=== PATIENT | male | born 1935 | race Hispanic/Latino ===

== ENCOUNTER 2022-10-09 14:33 | Emergency (ER) | payer MEDICARE, SELFPAY ==
[2022-10-09 14:34] VITALS: BP 144/81; PULSE 89; RESP 18; TEMP 36.6; O2SAT 97; BMI 20.5
--- NOTE | 2022-10-09 14:51 | EX.ED.DYSGE1 ---
HPI <MAUDE Colon - Last Filed: 10/09/22 17:15> History of Present Illness Chief Complaint: Dizziness Narrative Narrative: 86-year-old male presents with vertigo. His granddaughter interprets at bedside as he is non-Citizen Of [place] speaking. He returned from [place] about 2 weeks ago and had a cold which resolved. Then 4 days ago he started having vertigo symptoms where if he sits up in bed or turns his head quickly the room spins for several seconds. It resolves with rest. He has nausea but no vomiting. No visual changes or focal motor or sensory changes. No chest pain or shortness of breath. He has had 5 similar episodes in the past and was seen in [place] and prescribed a medication for dizziness and nausea which helped but he no longer has these. He takes no medications. He does not have a primary care doctor. PFSH <MAUDE Colon - Last Filed: 10/09/22 17:15> [facility] Home Medications ciprofloxacin HCl 250 mg tablet 250 mg PO BID ##10 03/19/14 [Rx Last Taken Unknown] phenazopyridine 200 mg tablet 200 mg PO TID #9 tabs 03/19/14 [Rx Last Taken Unknown] meclizine 25 mg tablet 25 mg PO 4X/DAY PRN Dizziness #20 tabs 10/09/22 [Rx Last Taken Unknown] ondansetron 4 mg disintegrating tablet 4 mg PO Q8H PRN PRN Nausea #10 tabs 10/09/22 [Rx Last Taken Unknown] Allergy/AdvReac Type Severity Reaction Status Date / Time No Known Allergies Allergy Verified 10/09/22 14:33 Social History Smoking Status: Never smoker ROS <MAUDE Colon - Last Filed: 10/09/22 17:15> ROS ED ROS Narrative Constitutional: Negative for fever, chills, malaise. Eyes: Negative for visual change. ENT: Negative for sore throat, ear pain, rhinorrhea. CVS: Negative for palpitations, chest pain, syncope. Respiratory: Negative for shortness of breath, cough. GI: Positive for nausea. Negative for abdominal pain, vomiting, diarrhea. : Negative for dysuria. Neuro: Negative for headache, motor/sensory dysfunction. Skin: Negative for rash, abscess, or wound. Musc: Negative for joint pain, swelling, trauma. EXAM <MAUDE Colon - Last Filed: 10/09/22 17:15> Physical Exam Narrative Exam Narrative: CONST: Patient sitting in no acute distress. EYES: Normal inspection. Small left medial pterygium, PERRLA, EOMI, no nystagmus noted. ENT: Normal inspection, moist mucous membranes, nares clear, normal TMs bilaterally. NECK: Normal inspection. RESP: No respiratory distress, CTAB. CVS: Regular rate and rhythm, no murmur, no gallop. SKIN: Color normal, no rash, warm, dry, intact. EXTREMITIES: Normal appearance, full ROM, 2+ radial and PT pulses. NEURO: Oriented x4, 5/5 upper and lower extremity strength, normal [id number] bilaterally. Normal gait. PSYCH: Normal affect. Const Vital Signs: 10/09/22 14:34 10/09/22 14:55 10/09/22 16:02 Temperature 97.9 F Temperature Source Temporal Pulse Rate 89 71 Respiratory Rate 18 16 Respiratory Pattern Normal Blood Pressure 144/81 H 125/62 H Blood Pressure Mean 102 83 Pulse Ox 97 97 Oxygen Delivery Method Room Air Room Air 10/09/22 17:18 Temperature Temperature Source Pulse Rate 79 Respiratory Rate 16 Respiratory Pattern Blood Pressure 141/86 H Blood Pressure Mean Pulse Ox 96 Oxygen Delivery Method <Dr. Estefany Rodriguez MD - Last Filed: 10/09/22 21:01> Physical Exam Const Vital Signs: 10/09/22 14:34 10/09/22 14:55 10/09/22 16:02 Temperature 97.9 F Temperature Source Temporal Pulse Rate 89 71 Respiratory Rate 18 16 Respiratory Pattern Normal Blood Pressure 144/81 H 125/62 H Blood Pressure Mean 102 83 Pulse Ox 97 97 Oxygen Delivery Method Room Air Room Air 10/09/22 17:18 Temperature Temperature Source Pulse Rate 79 Respiratory Rate 16 Respiratory Pattern Blood Pressure 141/86 H Blood Pressure Mean Pulse Ox 96 Oxygen Delivery Method MDM <MAUDE Colon - Last Filed: 10/09/22 17:15> [facility] Narrative Medical decision making narrative: History gathered from: Patient, granddaughter who interprets Patient presents for episodes of dizziness described as room spinning lasting seconds to minutes with head movements or positional changes. He has had similar symptoms in the past. He appears well and nontoxic with normal vital signs. His vision is intact, pupils reactive, no signs of nystagmus. Normal HEENT exam. Heart regular lungs clear he is neurologically intact. No signs of ataxia on exam and he has normal gait. Labs were ordered and he was treated with IV fluids, meclizine and Zofran. EKG is sinus rhythm with no ectopy or ischemic changes. CBC shows normal white count of 6.7, hemoconcentration at 16.7. He has normal electrolytes and creatinine 1.16. There are no prior labs for comparison but he may be slightly dehydrated. He feels much better after treatment and is even moving his head quickly side to side to show me that his symptoms have resolved. I provided a primary care referral and prescriptions for Zofran and meclizine at home to take as needed. He was counseled to return if symptoms worsen and was discharged in stable condition. Differential: BPPV, central vertigo Test considered but not ordered: His symptoms of brief room spinning with head movements seem consistent with peripheral vertigo. With a normal neurological exam and history of similar symptoms I do not think an emergent CT scan of the brain is indicated. Lab Data Attestation: I reviewed the patient's lab results. Labs: Laboratory Results - last 24 hr 10/09/22 10/09/22 14:55 14:55 WBC 6.7 RBC 5.36 Hgb 16.7 H Hct 50.0 H MCV 93.3 MCH 31.2 MCHC 33.4 RDW Std Deviation 45.3 H RDW Coeff of Richy 13.2 Plt Count 227 MPV 8.8 Immature Gran % (Auto) 2.500 H Neut % (Auto) 67.3 Lymph % (Auto) 21.5 Hoke % (Auto) 6.2 Eos % (Auto) 1.9 Baso % (Auto) 0.6 Absolute Neuts (auto) 4.5 Absolute Lymphs (auto) 1.45 Nucleated RBC % 0 Sodium 137 Potassium 4.2 Chloride 102 Carbon Dioxide 28.0 Anion Gap 7 BUN 25 H Creatinine 1.16 H Estim Creat Clear Calc 35.26 Est GFR (MDRD) Af Amer 57 L Est GFR (MDRD) Non-Af 47 L BUN/Creatinine Ratio 21.6 H Glucose 115 H Calcium 9.4 EKG Initial EKG: Attestation: I personally reviewed and interpreted this EKG as follows: Interpretation: Sinus Rhythm and No Acute Injury Pattern Comments: Normal sinus rhythm at rate of 82 bpm, no ectopy, no ischemic changes noted <Dr. Estefany Rodriguez MD - Last Filed: 10/09/22 21:01> [facility] Lab Data Labs: Laboratory Results - last 24 hr 10/09/22 10/09/22 14:55 14:55 WBC 6.7 RBC 5.36 Hgb 16.7 H Hct 50.0 H MCV 93.3 MCH 31.2 MCHC 33.4 RDW Std Deviation 45.3 H RDW Coeff of Richy 13.2 Plt Count 227 MPV 8.8 Immature Gran % (Auto) 2.500 H Neut % (Auto) 67.3 Lymph % (Auto) 21.5 Hoke % (Auto) 6.2 Eos % (Auto) 1.9 Baso % (Auto) 0.6 Absolute Neuts (auto) 4.5 Absolute Lymphs (auto) 1.45 Nucleated RBC % 0 Sodium 137 Potassium 4.2 Chloride 102 Carbon Dioxide 28.0 Anion Gap 7 BUN 25 H Creatinine 1.16 H Estim Creat Clear Calc 35.26 Est GFR (MDRD) Af Amer 57 L Est GFR (MDRD) Non-Af 47 L BUN/Creatinine Ratio 21.6 H Glucose 115 H Calcium 9.4 Treatment and Re-Evaluation :: Patient seen and evaluated with [facility]. I personally interviewed and examined the patient. I was involved in all aspects of patient's orders, interpretation of results, and treatment. Patient presents with family secondary to dizziness. He has had a sensation of room spinning. He has had similar symptoms in the past that improved with what sounds like Zofran and meclizine, however he is currently out of the medication. Patient sitting upright in bed no acute distress. Head and neck examination unremarkable. Heart regular rate and rhythm. Lung sounds are clear. Abdomen is soft and nontender. Neuro exam reveals no focal neurodeficits. Patient given IV fluids along with Zofran and meclizine. Lab work obtained. Lab work does reveal a concentrated hemoglobin at 16.7. Chemistry studies largely unremarkable. On repeat evaluation patient was improved. Prescriptions for Zofran and Antivert are sent to the pharmacy. Return instructions given. Discharge Plan Triage Chief Complaint: Dizziness ED Midlevel Provider: Rae Engel ED Provider: Estefany Rodriguez Dx/Rx/DC Orders Clinical Impression: Benign paroxysmal positional vertigo Instructions: ED BPV Vertigo Prescriptions: New ondansetron 4 mg tablet,disintegrating 4 mg PO Q8H PRN PRN (Reason: Nausea) Qty: 10 0RF meclizine 25 mg tablet 25 mg PO 4X/DAY PRN Qty: 20 0RF No Action phenazopyridine 200 MG tablet 200 mg PO TID Qty: 9 0RF ciprofloxacin HCl 250 MG tablet 250 mg PO BID Qty: 10 0RF Primary Care Provider: Care Physician,No Primary Referrals: Alexa George MD [Med Staff - [employer]] - Care Physician,No Primary [Primary Care Provider] - Activity Restrictions/Additional Instructions: Please call and get a primary care doctor. I prescribed medication for dizziness and nausea to take if his symptoms occur again. If symptoms are not manageable with medication or get worse come back to the emergency room. Disposition Disposition: Home, Self Care Discharge Date/Time: 10/09/22 17:20
--- NOTE | 2022-10-09 14:56 | EKG12_ITS ---
Test Reason : DIZZINESS Blood Pressure : / mmHG Vent. Rate : 082 BPM Atrial Rate : 082 BPM P-R Int : 138 ms QRS Dur : 078 ms QT Int : 370 ms P-R-T Axes : 063 -08 056 degrees QTc Int : 432 ms Normal sinus rhythm Normal ECG Confirmed by KENIA QURESHI, JIMY ([id number]), manuscript editor ZEINA ANDUJAR ([id number]) on 10/11/2022 2:34:14 PM Referred By: ANIBAL Confirmed By:JIMY AQUINO MD
[2022-10-09 15:02] LABS: Absolute Lymphocyte Count 1.45 X10^3/uL (0.83-4.51); Absolute Neutrophil Count 4.5 X10^3/uL (2.0-7.7); Basophil# 0.04 X10^3/uL; Basophil% 0.6 % (0-1); Eosinophil# 0.13 X10^3/uL; Eosinophils% 1.9 % (0-5); Hemoglobin 16.7 g/dL (12.0-15.0); Lymphocyte # 1.45 X10^3/ul (0.83-4.51); Lymphocyte % 21.5 % (19-41); Mean Corp Hgb Conc 33.4 g/dL (32-36); Mean Corpuscular Hgb 31.2 pg (27.0-32.0); Mean Corpuscular Volume 93.3 fL (81-99); Mean Platelet Vol. 8.8 fl (6.2-12.0); Monocyte# 0.42 X10^3/uL; Monocyte% 6.2 % (0-10); NRBC Flagged by Analyzer 0 % (0-5); Neutrophil # 4.52 X10^3/uL (2.7-7.7); Neutrophil % 67.3 % (47-70); Platelet Count 227 K/mm3 (150-450); RBC Distribution Width CV 13.2 % (11.6-14.6); RBC Distribution Width SD 45.3 fl (35.1-43.9); Red Blood Count 5.36 M/mm3 (4.2-5.4); White Blood Count 6.7 K/mm3 (4.4-11.0)
[2022-10-09] MEDS: 0.9% Normal Saline 1,000 ML 999 ML IV (15:03)
[2022-10-09] MEDS: Meclizine HCl 25 MG Tablet PO (15:04)
[2022-10-09] MEDS: Ondansetron 4 MG/2 ML Vial IV (15:05)
[2022-10-09 15:23] LABS: Anion Gap 7 (5-15); BUN 25 mg/dL (7-18); BUN/Creat Ratio 21.6 RATIO (10-20); Calcium,Total 9.4 mg/dL (8.5-10.1); Chloride 102 mmol/L (98-107); Creatinine, Serum 1.16 mg/dL (0.55-1.02); EST Glomerular Filtration Rate 47 mL/min (>60); Est Glom Filt Rate - Afr Amer 57 mL/min (>60); Estimated Creatinine Clearance 35.26 ml/min; Glucose 115 mg/dL (74-106); Potassium 4.2 mmol/L (3.5-5.1); Sodium Level 137 mmol/L (136-145)
[2022-10-09 16:02] VITALS: BP 125/62; PULSE 71; RESP 16; O2SAT 97
[2022-10-09 17:18] VITALS: BP 141/86; PULSE 79; RESP 16; O2SAT 96
== END 2022-10-09 17:20 | disposition home or self-care (01) ==
PROVIDERS: Physician Assistant; Emergency Provider Emergency Medicine; Visit Provider Emergency Medicine
DX: H81.10 Benign paroxysmal vertigo, unspecified ear (principal)
CPT/HCPCS: 80048; 85025; 93005; 96374; 99283; J7030; J2405